=== PATIENT | female | born 1940 | race Two or more races ===

== ENCOUNTER 2018-08-11 09:44 | Outpatient (CLI) | payer OTHER ==
[2018-08-11 18:00] LABS: ALBUMIN 4.1 g/dL (3.2-5.5); ALBUMIN/GLOBULIN RATIO 1.3 (1.0-2.2); ALKALINE PHOSPHATASE 80 IU/L (42-121); ALT ALANINE AMINOTRANSFERASE 64 IU/L (10-60); AST ASPARTATE AMINOTRANSFERASE 39 IU/L (10-42); BILIRUBIN,TOTAL 0.9 mg/dL (0.2-1.0); BUN - BLOOD UREA NITROGEN 54 mg/dL (6-20); CALCIUM 9.6 mg/dL (8.5-10.3); CARBON DIOXIDE - CO2 23 mmol/L (21-32); CHLORIDE 105 mmol/L (101-111); CHOL/HDL RATIO 2.1 (<4.4); CHOLESTEROL 137 mg/dL; CREATININE 2.4 mg/dL (0.4-1.0); GFR - MDRD 20 (>89); GLUCOSE 100 mg/dL (70-100); HDL CHOLESTEROL 65 mg/dL; LDL CHOLESTEROL,CALCULATED 59 mg/dL; LDL/HDL RATIO 0.9 (<4.4); SODIUM 139 mmol/L (135-145); TOTAL PROTEIN 7.3 g/dL (6.7-8.2); VLDL CHOLESTEROL 13 mg/dL
[2018-08-11 18:35] LABS: HB2 TOTAL 11.9 g/dL; HEMOGLOBIN A1C 0.78 g/dL; HEMOGLOBIN A1C % 8.1 % (4.6-6.2)
== END 2018-08-11 09:45 | disposition home or self-care (01) ==
LOC: LAB.F 09:44
PROVIDERS: ATTEND Internal Medicine
DX: E78.5 Hyperlipidemia, unspecified (principal); E11.9 Type 2 diabetes mellitus without complications
CPT/HCPCS: 36415; 80053; 80061; 82043; 83036; 83721; 84443

== ENCOUNTER 2019-02-22 08:47 | Outpatient (CLI) | payer OTHER ==
[2019-02-22 17:40] LABS: HB2 TOTAL 10.9 g/dL; HEMOGLOBIN A1C 0.57 g/dL; HEMOGLOBIN A1C % 6.9 % (4.6-6.2)
[2019-02-22 17:41] LABS: ALBUMIN 4.1 g/dL (3.2-5.5); ALBUMIN/GLOBULIN RATIO 1.3 (1.0-2.2); ALKALINE PHOSPHATASE 83 IU/L (42-121); ALT ALANINE AMINOTRANSFERASE 24 IU/L (10-60); AST ASPARTATE AMINOTRANSFERASE 23 IU/L (10-42); BILIRUBIN,TOTAL 0.7 mg/dL (0.2-1.0); BUN - BLOOD UREA NITROGEN 53 mg/dL (6-20); CALCIUM 9.6 mg/dL (8.5-10.3); CARBON DIOXIDE - CO2 24 mmol/L (21-32); CHLORIDE 107 mmol/L (101-111); CHOL/HDL RATIO 2.4 (<4.4); CHOLESTEROL 166 mg/dL; CREATININE 2.6 mg/dL (0.4-1.0); GFR - MDRD 18 (>89); GLUCOSE 125 mg/dL (70-100); HDL CHOLESTEROL 70 mg/dL; LDL CHOLESTEROL,CALCULATED 80 mg/dL; LDL/HDL RATIO 1.1 (<4.4); SODIUM 139 mmol/L (135-145); TOTAL PROTEIN 7.3 g/dL (6.7-8.2); VLDL CHOLESTEROL 16 mg/dL
== END 2019-02-22 08:48 | disposition home or self-care (01) ==
LOC: LAB.S 08:47
PROVIDERS: ATTEND Internal Medicine
DX: E78.5 Hyperlipidemia, unspecified (principal); E11.9 Type 2 diabetes mellitus without complications; E03.9 Hypothyroidism, unspecified
CPT/HCPCS: 36415; 80053; 80061; 83036; 83721; 84443

== ENCOUNTER 2021-03-24 14:00 | Outpatient (CLI) | payer MEDICARE ==
[2021-03-24 20:14] LABS: BILIRUBIN,URINE NEGATIVE (NEGATIVE); GLUCOSE, URINE (UA) NEGATIVE (NEGATIVE); KETONES,URINE (UA) NEGATIVE (NEGATIVE); LEUKOCYTE ESTERASE, URINE TRACE (NEGATIVE); NITRITE,URINE NEGATIVE (NEGATIVE); OCCULT BLOOD,URINE TRACE-INTA (NEGATIVE); PH,URINE 5.5 PH (5.0-7.5); PROTEIN,URINE 30 mg/dL (NEGATIVE); UROBILINOGEN,URINE 0.2 (NORMAL) E.U./dL (NORMAL)
[2021-03-24 20:17] LABS: CLARITY,URINE CLEAR (CLEAR)
[2021-03-24 20:41] LABS: RBC,URINE 0-5 /HPF (0-5); WBC CLUMPS,URINE PRESENT; WBC,URINE >25 /HPF (0-5)
[2021-03-24 20:42] LABS: BACTERIA,URINE Moderate /HPF (None Seen); SQUAMOUS EPITHELIAL CELL,UR NONE SEEN (<= Few)
== END 2021-03-24 14:01 | disposition home or self-care (01) ==
LOC: LAB.S 14:00
DX: N39.0 Urinary tract infection, site not specified (principal)
CPT/HCPCS: 81001; 81003; 87077; 87086; 87181

== ENCOUNTER 2021-06-11 12:52 | Emergency (ER) | payer MEDICARE ==
[2021-06-11 13:04] VITALS: BP 111/83
--- NOTE | 2021-06-11 13:10 | ED Physician Documentation ---
PD HPI HEENT - Stated complaint Stated Complaint: FB IN LT EAR - Chief complaint Chief Complaint: Heent - History obtained from History obtained from: Patient - History of Present Illness Location: Left ear (The rubber tip of her hearing aid has been stuck in the left ear for the last 2 nights.) Review of Systems Constitutional: reports: Reviewed and negative Ears: reports: Loss of hearing, Ear pain, Foreign body. denies: Drainage/discharge Nose: reports: Reviewed and negative PD PAST MEDICAL HISTORY - Present Medications Home Medications: Ambulatory Orders Medication Instructions Recorded Confirmed Atorvastatin [Lipitor] 06/11/21 Furosemide [Lasix] 06/11/21 Insulin Glargine [Lantus Solostar] 06/11/21 Insulin Lispro [Humalog] 06/11/21 Levothyroxine Sodium 50 mcg PO 06/11/21 06/11/21 [Levothyroxine] - Allergies Allergies/Adverse Reactions: Allergies Allergy/AdvReac Type Severity Reaction Status Date / Time No Known Drug Allergies Allergy Verified 06/11/21 13:04 PD ED PE NORMAL - Vitals Vital signs reviewed: Yes - General General: Alert and oriented X 3, No acute distress - HEENT HEENT: Other (There is a foreign body deep in the ear canal) - Neuro Neuro: Alert and oriented X 3, Normal speech Results - Vitals Vitals: Vital Signs - 24 hr 06/11/21 13:00 Temperature 36.3 C L Heart Rate 78 Respiratory 16 Rate Blood Pressure 111/83 H O2 Saturation 100 Oxygen O2 Source Room air Procedures - FB removal FB location: Ear (The rubber piece of her hearing aid was removed from the left ear canal with alligator forceps without difficulty. She tolerated it well and subsequent otoscopy was normal.) Departure - Departure Disposition: 01 Home, Self Care Clinical Impression: Foreign body in ear Condition: Good Record reviewed to determine appropriate education?: Yes Instructions: ED Foreign Body Ear Canal
== END 2021-06-11 13:15 | disposition home or self-care (01) ==
LOC: ED 12:52
DX: T16.2XXA Foreign body in left ear, initial encounter (principal); X58.XXXA Exposure to other specified factors, initial encounter
CPT/HCPCS: 69200; 99281

== ENCOUNTER 2021-08-12 13:36 | Outpatient (CLI) | payer MEDICARE ==
[2021-08-15 11:31] LABS: COMPLEMENT COMPONENT C3C 116 mg/dL (83-193); COMPLEMENT COMPONENT C4C 33 mg/dL (15-57)
[2021-08-19 15:06] LABS: ANA PATTERN Nuclear, Homogeneous; ANA SCREEN POSITIVE (NEGATIVE)
== END 2021-08-12 13:37 | disposition home or self-care (01) ==
LOC: LAB.S 13:36
PROVIDERS: ATTEND Internal Medicine Nephrology
DX: N18.4 Chronic kidney disease, stage 4 (severe) (principal)
CPT/HCPCS: 36415; 81599; 82570; 84155; 84156; 84165; 84166; 86038; 86160; 86334

== ENCOUNTER 2022-04-26 17:07 | Emergency (ER) | payer MEDICARE ==
--- NOTE | 2022-04-26 18:52 | XRAY Report ---
PROCEDURE: Chest 1 View X-Ray INDICATIONS: Chest pain TECHNIQUE: One view of the chest was acquired. COMPARISON: None. FINDINGS: Surgical changes and devices: None. Lungs and pleura: No pleural effusions or pneumothorax. Lungs are clear. Mediastinum: Mediastinal contours appear normal. Heart size is normal. Bones and chest wall: No suspicious bony lesions. Overlying soft tissues appear unremarkable. IMPRESSION: No acute cardiopulmonary abnormality. Reviewed by: Ankur Queen MD on 04/26/2022 6:[address] [facility] Approved by: Ankur Queen MD on 04/26/2022 6:[address] [facility] Station ID: [id number]
[2022-04-26 18:54] LABS: BASOPHILS # (AUTO) 0.1 10^3/uL (0.0-0.1); BASOPHILS % (AUTO) 0.9 %; EOSINOPHILS # (AUTO) 0.2 10^3/uL (0.0-0.7); EOSINOPHILS % (AUTO) 2.9 %; HCT - HEMATOCRIT 36.4 % (37.0-47.0); HGB - HEMOGLOBIN 11.2 g/dL (12.0-16.0); LYMPHOCYTES # (AUTO) 1.8 10^3/uL (1.5-3.5); LYMPHOCYTES % (AUTO) 25.8 %; MEAN CORPUSCULAR HEMOGLOBIN 28.8 pg (27.0-31.0); MEAN CORPUSCULAR HGB CONC 30.8 g/dL (32.0-36.0); MEAN CORPUSCULAR VOLUME 93.6 fL (81.0-99.0); MEAN PLATELET VOLUME 9.9 fL (7.9-10.8); MONOCYTES # (AUTO) 0.6 10^3/uL (0.0-1.0); MONOCYTES % (AUTO) 8.4 %; NEUTROPHILS # (AUTO) 4.2 10^3/uL (1.5-6.6); NEUTROPHILS % (AUTO) 61.7 %; PLT - PLATELET COUNT 229 10^3/uL (130-450); RED BLOOD COUNT 3.89 10^6/uL (4.20-5.40); RED CELL DISTRIBUTION WIDTH 13.2 % (12.0-15.0); WHITE BLOOD COUNT 6.8 x10^3/uL (4.8-10.8)
[2022-04-26 19:11] LABS: ALBUMIN 3.5 g/dL (3.2-5.5); BILIRUBIN,TOTAL 0.2 mg/dL (0.2-1.0); CREATININE 3.1 mg/dL (0.4-1.0); POTASSIUM 4.3 mmol/L (3.5-5.0); TOTAL PROTEIN 6.9 g/dL (6.7-8.2)
[2022-04-26] MEDS ORDERED: SODIUM CHLORIDE 0.9% 1,000 ML IV STA (21:36)
--- NOTE | 2022-04-26 21:38 | ED Physician Documentation ---
History of Present Illness - Stated complaint Stated Complaint: HIGH BP/HEART RATE - Chief complaint Chief Complaint: Cardiac - History obtained from History obtained from: Patient, Family - History of Present Illness Timing: Today - Additonal information Additional information: 81-year-old but has a history of renal insufficiency and hypertension and she is recently increased her dose of lisinopril. Today she became concerned when she developed an increase in her blood pressure despite taking increase lisinopril and developing some chest pressure and she was asked by her oracle business analyst to come to the emergency department for evaluation. She states that she is otherwise not been ill recently. Review of Systems Constitutional: denies: Fever Eyes: denies: Decreased vision Ears: denies: Ear pain Nose: denies: Congestion Throat: denies: Sore throat Cardiac: reports: Chest pain / pressure. 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 HEENT: Chronic hearing loss Derm: None - Past Surgical History Past Surgical History: Yes - Present Medications Home Medications: Ambulatory Orders Medication Instructions Recorded Confirmed Atorvastatin [Lipitor] 06/11/21 Furosemide [Lasix] 06/11/21 Insulin Glargine [Lantus Solostar] 06/11/21 Insulin Lispro [Humalog] 06/11/21 Levothyroxine Sodium 50 mcg PO 06/11/21 06/11/21 [Levothyroxine] - Allergies Allergies/Adverse Reactions: Allergies Allergy/AdvReac Type Severity Reaction Status Date / Time No Known Drug Allergies Allergy Verified 04/26/22 18:19 - Social History Does the pt smoke?: No Smoking Status: Never smoker Does the pt drink ETOH?: No Does the pt have substance abuse?: No - Immunizations Immunizations are current?: Yes PD ED PE NORMAL - Vitals Vital signs reviewed: Yes (hypertensive ) - General General: Alert and oriented X 3, No acute distress, Well developed/nourished - HEENT HEENT: Atraumatic, PERRL, EOMI - Neck Neck: Supple, no meningeal sign, No bony TTP - Cardiac Cardiac: RRR, No murmur - Respiratory Respiratory: No respiratory distress, Clear bilaterally - Abdomen Abdomen: Soft, Non tender - Back Back: No CVA TTP, No spinal TTP - Derm Derm: Normal color, Warm and dry, No rash - Extremities Extremities: No deformity, No edema - Neuro Neuro: Alert and oriented X 3, recreation clerk 2-12 intact, No motor deficit, No sensory deficit, Normal speech Eye Opening: Spontaneous Motor: Obeys Commands Verbal: Oriented GCS Score: 15 - Psych Psych: Normal mood, Normal affect Results - Vitals Vitals: Vital Signs - 24 hr 04/26/22 04/26/22 04/26/22 18:12 20:55 21:51 Temperature 36.2 C L Heart Rate 94 90 83 Respiratory 20 16 21 Rate Blood Pressure 193/70 H 204/95 H 201/76 H O2 Saturation 99 100 100 04/26/22 04/26/22 04/26/22 22:34 23:04 23:20 Temperature 36.3 C L Heart Rate 81 Respiratory 20 Rate Blood Pressure 190/74 H 194/83 H 192/78 H O2 Saturation 100 Oxygen O2 Source Room air - Labs Labs: Laboratory Tests 04/26/22 04/26/22 04/26/22 18:48 18:48 18:48 WBC 6.8 RBC 3.89 L Hgb 11.2 L Hct 36.4 L MCV 93.6 MCH 28.8 MCHC 30.8 L RDW 13.2 Plt Count 229 MPV 9.9 Neut # (Auto) 4.2 Lymph # (Auto) 1.8 Carbon # (Auto) 0.6 Eos # (Auto) 0.2 Baso # (Auto) 0.1 Absolute Nucleated RBC 0.00 Nucleated RBC % 0.0 Sodium 141 Potassium 4.3 Chloride 111 Carbon Dioxide 23 Anion Gap 7.0 BUN 41 H Creatinine 3.1 H Estimated GFR (MDRD) 14 L Glucose 93 Calcium 9.0 Total Bilirubin 0.2 AST 23 ALT 21 Alkaline Phosphatase 99 Troponin I High Sens 10.2 Total Protein 6.9 Albumin 3.5 Globulin 3.4 Albumin/Globulin Ratio 1.0 Lipase 29 - Rads (name of study) chest Radiology: Prelim report reviewed (Impression: No acute cardiopulmonary abnormality.), EMP read indepedently, See rad report Procedures - IVC sono (time) 2129 Bedside IVC sono: IVC measures (cm) (0.93), IVC collapsed c insp (cm) (complete), Dehydration (est 2 liter deficit) PD MEDICAL DECISION MAKING - ED course Complexity details: considered differential, d/w patient, d/w family ED course: 81-year-old female with a recent spike in her blood pressure and a history of renal insufficiency has developed a low-grade headache and chest pressure. She has had symptoms since early in the day and she is found to be dehydrated on interrogation of the inferior vena cava with POCUS. She is administered a liter of saline intravenously with improvement. Departure - Departure Disposition: 01 Home, Self Care Clinical Impression: Dehydration Condition: Stable Instructions: ED Dehydration Follow-Up: FERMÍN CHEEK MD [Primary Care Provider] - Comments: Rosalie today it looks like you were dehydrated when we checked your inferior venacava at the bedside with ultrasound. We were able to give you a liter of saline and you will need additional fluids at home to catch up. Discharge Date/Time: 04/26/22 23:35
[2022-04-26 23:21] VITALS: BP 192/78
== END 2022-04-26 23:35 | disposition home or self-care (01) ==
LOC: ED 17:07
DX: E86.0 Dehydration (principal); I10 Essential (primary) hypertension; R07.89 Other chest pain; R51.9 Headache, unspecified; I45.2 Bifascicular block; E11.9 Type 2 diabetes mellitus without complications; Z79.4 Long term (current) use of insulin; E03.9 Hypothyroidism, unspecified; Z79.899 Other long term (current) drug therapy
CPT/HCPCS: 36415; 80053; 83690; 84484; 85025; 93005; 96360; 99284

== ENCOUNTER 2023-02-02 14:20 | Outpatient (CLI) | payer MEDICARE ==
[2023-02-02 20:26] LABS: ALBUMIN 3.3 g/dL (3.2-5.5); CREATININE 6.5 mg/dL (0.6-1.3); PHOSPHORUS 6.4 mg/dL (2.5-5.0); POTASSIUM 5.1 mmol/L (3.5-4.5)
== END 2023-02-02 14:21 | disposition home or self-care (01) ==
LOC: LAB.S 14:20
PROVIDERS: ATTEND Internal Medicine Nephrology
DX: N18.5 Chronic kidney disease, stage 5 (principal)
CPT/HCPCS: 36415; 80069

== ENCOUNTER 2023-12-29 16:09 | Outpatient (CLI) | payer MEDICARE | END 2023-12-29 23:59 | disposition critical access hospital (66) | LOC: EMS 16:09 | DX: R06.03 Acute respiratory distress (principal); Z99.2 Dependence on renal dialysis | CPT/HCPCS: A0425; A0427 ==

== ENCOUNTER 2023-12-29 16:24 | Emergency (ER) | payer MEDICARE ==
--- NOTE | 2023-12-29 16:34 | ED Physician Documentation ---
History of Present Illness - Stated complaint Stated Complaint: RESP DISTRESS - History obtained from History obtained from: Patient, EMS - Additonal information Additional information: The patient comes to the emergency department via EMS for chief complaint of dyspnea that began suddenly while she was at the dentist office. Patient states she was feeling normal earlier today, but when she got in the dental chair this afternoon, she suddenly began to feel short of breath. She states she did not feel like she was having a panic attack and did not feel as though she had been ill with anything. She denies any chest pain or nausea. No diaphoresis. She did not feel any feeling of fever or chills. The patient has a history of renal failure on dialysis and her last dialysis treatment was yesterday. She states that seem to go as well as usual and she had no problems afterward. She is due again tomorrow. She has no history of CHF, coronary artery disease, or PE/DVT. She has not had any lower extremity edema or pain. No fevers or cough recently. She denies any history of smoking, COPD, or asthma.She states she is feeling better after being on CPAP and route and receiving an inline DuoNeb. She states this is never happened to her before. No other complaints at this time. Medics state that when they picked the patient up, she was already on 4 L of oxygen per nasal cannula and satting around 92%. Her blood pressure was elevated en route around 214/100. 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 HEENT: Chronic hearing loss Derm: None - Past Surgical History Past Surgical History: Yes - Present Medications Home Medications: Ambulatory Orders Medication Instructions Recorded Confirmed Atorvastatin [Lipitor] 10 mg ORAL HS 06/11/21 07/04/23 Insulin Lispro [Humalog] 5 unit SUBQ TIDWM 06/11/21 Cholecalciferol [Vitamin D3] 50 mcg PO DAILY 07/04/23 07/04/23 Cyanocobalamin (Vitamin B-12) 1,000 mcg PO DAILY 07/04/23 07/04/23 [Vitamin B12] Folic Acid/Vit B Complex and C 0.8 mg PO DAILY 07/04/23 07/04/23 [Nephro-[place] Tablet] Insulin Glargine [Lantus Solostar] 16 unit SUBQ DAILY 07/04/23 07/04/23 Levothyroxine [Synthroid] 75 mcg PO QDAC 07/04/23 07/04/23 Torsemide 60 mg PO DAILY 07/04/23 07/04/23 Ondansetron Odt [Zofran] 4 mg TL Q6H PRN #10 tablet 07/05/23 atenoloL [Tenormin] 50 mg PO Q2D #20 tablet 07/05/23 - Allergies Allergies/Adverse Reactions: Allergies Allergy/AdvReac Type Severity Reaction Status Date / Time No Known Drug Allergies Allergy Verified 07/04/23 18:27 - Social History Does the pt smoke?: No Smoking Status: Never smoker Does the pt drink ETOH?: No Does the pt have substance abuse?: No - Immunizations Immunizations are current?: Yes PD ED PE NORMAL - Vitals Vital signs reviewed: Yes - General General: Alert and oriented X 3, Well developed/nourished, Other (Mildly anxious appearing patient who has mildly labored respirations, on CPAP machine, alert.) - HEENT HEENT: Atraumatic, PERRL, EOMI, Moist mucous membranes - Neck Neck: Supple, no meningeal sign - Cardiac Cardiac: No murmur, Strong equal pulses, Other (Tachycardic rate regular rhythm.) - Respiratory Respiratory: Other (Mild respiratory distress, mild rhonchi bilaterally. Air movement to bases of lungs.) - Abdomen Abdomen: Soft, Non tender, Non distended - Derm Derm: Normal color, Warm and dry, No rash - Extremities Extremities: No deformity, No edema, No calf tenderness / cord - Neuro Neuro: Alert and oriented X 3 - Psych Psych: Normal mood, Normal affect Results - Vitals Vitals: Vital Signs - 24 hr 12/29/23 12/29/23 12/29/23 16:24 16:32 16:37 Temperature 36.7 C Heart Rate 113 H 79 Respiratory 37 H Rate Blood Pressure 194/64 H O2 Saturation 99 12/29/23 12/29/23 12/29/23 16:56 17:07 19:30 Temperature Heart Rate 103 H 79 82 Respiratory 18 23 18 Rate Blood Pressure 207/72 H 185/72 H 145/59 H O2 Saturation 99 99 100 12/29/23 12/29/23 12/29/23 20:00 20:30 21:00 Temperature Heart Rate 88 76 77 Respiratory 20 18 18 Rate Blood Pressure 159/61 H 172/71 H 155/58 H O2 Saturation 96 99 98 12/29/23 12/29/23 21:30 22:00 Temperature Heart Rate 72 73 Respiratory 20 18 Rate Blood Pressure 134/57 H 154/64 H O2 Saturation 99 100 Oxygen O2 Source BIPAP - EKG (time done) 1631 EKG releavant findings:: EKG personally interpreted by author of this note. Relevant findings are: Rate: Rate (enter#) (105) Rhythm: Sinus tachycardia [place]: Normal, Anterior hemiblock Intervals: RBBB QRS: LVH (Probable) Ischemia: Normal ST segments - Labs Labs: Laboratory Tests 12/29/23 12/29/23 12/29/23 16:45 16:45 16:45 WBC 8.5 RBC 3.91 L Hgb 11.8 L Hct 37.4 MCV 95.7 MCH 30.2 MCHC 31.6 L RDW 14.3 Plt Count 243 MPV 9.5 Neut # (Auto) 5.6 Lymph # (Auto) 1.9 [place] # (Auto) 0.7 Eos # (Auto) 0.2 Baso # (Auto) 0.1 Absolute Nucleated RBC 0.00 Nucleated RBC % 0.0 Bld Gas Analysis Time Sample Site ABG pH ABG pCO2 ABG pO2 ABG HCO3 ABG Total CO2 ABG O2 Saturation ABG Base Excess Adelfo Test Respiration Rate O2 Delivery Device FiO2 EPAP IPAP Sodium 135 Potassium 4.4 Chloride 95 L Carbon Dioxide 29 Anion Gap 11.0 BUN 29 H Creatinine 5.4 H Estimated GFR (MDRD) 8 L Glucose 286 H Calcium 10.0 Total Bilirubin 0.6 AST 15 ALT 11 Alkaline Phosphatase 112 Troponin I High Sens 19.6 H* B-Natriuretic Peptide Total Protein 7.1 Albumin 4.0 Globulin 3.1 Albumin/Globulin Ratio 1.3 Lipase 12 Nasal Adenovirus (PCR) Nasal B. parapertussis DNA (PCR) Nasal Coronavir 229E PCR Nasal Coronavir HKU1 PCR Nasal Coronavir NL63 PCR Nasal Coronavir OC43 PCR Nasal Enterovir/Rhinovir PCR Nasal Influenza B PCR Nasal Influenza A PCR Nasal Parainfluen 1 PCR Nasal Parainfluen 2 PCR Nasal Parainfluen 3 PCR Nasal Parainfluen 4 PCR Nasal RSV (PCR) Nasal B.pertussis DNA PCR Nasal C.pneumoniae (PCR) Babak Human Metapneumo PCR Nasal M.pneumoniae (PCR) Nasal SARS-CoV-2 (PCR) 12/29/23 12/29/23 12/29/23 16:45 16:50 20:33 WBC RBC Hgb Hct MCV MCH MCHC RDW Plt Count MPV Neut # (Auto) Lymph # (Auto) [place] # (Auto) Eos # (Auto) Baso # (Auto) Absolute Nucleated RBC Nucleated RBC % Bld Gas Analysis Time 1657 Sample Site RIGHT RADIAL ABG pH 7.41 ABG pCO2 45 ABG pO2 93 ABG HCO3 27.7 H ABG Total CO2 29.1 H ABG O2 Saturation 97 ABG Base Excess 2.6 Adelfo Test POSITIVE Respiration Rate 12 O2 Delivery Device BiPAP FiO2 40.00 EPAP 5 IPAP 10 Sodium Potassium Chloride Carbon Dioxide Anion Gap BUN Creatinine Estimated GFR (MDRD) Glucose Calcium Total Bilirubin AST ALT Alkaline Phosphatase Troponin I High Sens B-Natriuretic Peptide 2507 H Total Protein Albumin Globulin Albumin/Globulin Ratio Lipase Nasal Adenovirus (PCR) NOT DETECTED Nasal B. parapertussis DNA (PCR) NOT DETECTED Nasal Coronavir 229E PCR NOT DETECTED Nasal Coronavir HKU1 PCR NOT DETECTED Nasal Coronavir NL63 PCR NOT DETECTED Nasal Coronavir OC43 PCR NOT DETECTED Nasal Enterovir/Rhinovir PCR NOT DETECTED Nasal Influenza B PCR NOT DETECTED Nasal Influenza A PCR NOT DETECTED Nasal Parainfluen 1 PCR NOT DETECTED Nasal Parainfluen 2 PCR NOT DETECTED Nasal Parainfluen 3 PCR NOT DETECTED Nasal Parainfluen 4 PCR NOT DETECTED Nasal RSV (PCR) NOT DETECTED Nasal B.pertussis DNA PCR NOT DETECTED Nasal C.pneumoniae (PCR) NOT DETECTED Babak Human Metapneumo PCR NOT DETECTED Nasal M.pneumoniae (PCR) NOT DETECTED Nasal SARS-CoV-2 (PCR) NOT DETECTED 12/29/23 20:33 WBC RBC Hgb Hct MCV MCH MCHC RDW Plt Count MPV Neut # (Auto) Lymph # (Auto) [place]ann[place] # (Auto) Eos # (Auto) Baso # (Auto) Absolute Nucleated RBC Nucleated RBC % Bld Gas Analysis Time Sample Site ABG pH ABG pCO2 ABG pO2 ABG HCO3 ABG Total CO2 ABG O2 Saturation ABG Base Excess Adelfo Test Respiration Rate O2 Delivery Device FiO2 EPAP IPAP Sodium Potassium Chloride Carbon Dioxide Anion Gap BUN Creatinine Estimated GFR (MDRD) Glucose Calcium Total Bilirubin AST ALT Alkaline Phosphatase Troponin I High Sens 76.3 H* B-Natriuretic Peptide Total Protein Albumin Globulin Albumin/Globulin Ratio Lipase Nasal Adenovirus (PCR) Nasal B. parapertussis DNA (PCR) Nasal Coronavir 229E PCR Nasal Coronavir HKU1 PCR Nasal Coronavir NL63 PCR Nasal Coronavir OC43 PCR Nasal Enterovir/Rhinovir PCR Nasal Influenza B PCR Nasal Influenza A PCR Nasal Parainfluen 1 PCR Nasal Parainfluen 2 PCR Nasal Parainfluen 3 PCR Nasal Parainfluen 4 PCR Nasal RSV (PCR) Nasal B.pertussis DNA PCR Nasal C.pneumoniae (PCR) Babak Human Metapneumo PCR Nasal M.pneumoniae (PCR) Nasal SARS-CoV-2 (PCR) PD Medical Decision Making - ED course Complexity details: reviewed results, re-evaluated patient, considered dif ferential, d/w patient ED course: Patient was evaluated by myself immediately upon arrival in the emergency department. She was immediately switched over to BiPAP and calmed significantly after I was able to speak with her. I ordered NTG paste for her, as well as Cardizem to bring her BP down. She was also given a small dose of Ativan. She was still having some laboring of respirations and so was kept on the BiPAP. Her oxygen saturation was 99 to 100% so we did back off on the oxygen a little bit. She was worked up with a EKG which showed sinus tachycardia, as well as labs and chest x-ray. Labs showed mildly elevated troponin, not surprisingly, given the pt's renal failure. Her WBC count was normal, and GFR was 8. ABG showed a pH of 7.4, with pO2 of 93 and normal pCO2. CXR showed marked pulmonary edema. The pt was given a very small dose of Lasix, given her renal failure, to encourage some diuresis. She did show marked improvement in HR and BP, and was found to be resting comfortably. The plan is for the pt to be transferred to a facility with cardiology and dialysis capabilities. She is signed out to Dr. Kyle at change of shift, pending transfer arrangements. - Critical Care Time(min): 45 Comments: Critical care time was necessary, due to high probability of imminent and life- threatening decline, secondary to hypertensive emergency, flash pulmonary edema, congestive heart failure, renal failure, and respiratory failure. Time Includes: Direct patient care, Review records, Reassess patient, Document care, Coordinate care, See progress note Data interpretation: Labs, Pulse ox, ABG, CXR, Cardiac output, See progress note Procedures included in critical care time: Ventilator mgmt Departure - Departure Disposition: 02 Transfer Acute Care Hosp Clinical Impression: ESRD (end stage renal disease) on dialysis, Hypertensive emergency Pulmonary edema Qualifiers: Chronicity: acute Qualified Code(s): J81.0 - Acute pulmonary edema Respiratory failure Qualifiers: Chronicity: acute Respiratory failure complication: hypoxia Qualified Code(s): J96.01 - Acute respiratory failure with hypoxia Condition: Critical
[2023-12-29 16:51] LABS: BASOPHILS # (AUTO) 0.1 10^3/uL (0.0-0.1); BASOPHILS % (AUTO) 0.7 %; EOSINOPHILS # (AUTO) 0.2 10^3/uL (0.0-0.7); EOSINOPHILS % (AUTO) 1.9 %; HCT - HEMATOCRIT 37.4 % (37.0-47.0); HGB - HEMOGLOBIN 11.8 g/dL (12.0-16.0); LYMPHOCYTES # (AUTO) 1.9 10^3/uL (1.5-3.5); LYMPHOCYTES % (AUTO) 22.9 %; MEAN CORPUSCULAR HEMOGLOBIN 30.2 pg (27.0-31.0); MEAN CORPUSCULAR HGB CONC 31.6 g/dL (32.0-36.0); MEAN CORPUSCULAR VOLUME 95.7 fL (81.0-99.0); MEAN PLATELET VOLUME 9.5 fL (7.9-10.8); MONOCYTES # (AUTO) 0.7 10^3/uL (0.0-1.0); MONOCYTES % (AUTO) 8.4 %; NEUTROPHILS # (AUTO) 5.6 10^3/uL (1.5-6.6); NEUTROPHILS % (AUTO) 65.7 %; PLT - PLATELET COUNT 243 10^3/uL (130-450); RED BLOOD COUNT 3.91 10^6/uL (4.20-5.40); RED CELL DISTRIBUTION WIDTH 14.3 % (12.0-15.0); WHITE BLOOD COUNT 8.5 x10^3/uL (4.8-10.8)
[2023-12-29] MEDS: LORazepam 2 MG/ML VIAL IVP STA (16:58)
[2023-12-29 17:00] LABS: ABG HCO3 27.7 mmol/L (22.0-26.0); ABG PCO2 45 mmHg (34-45); ABG PH 7.41 (7.35-7.45); ABG PO2 93 mmHg (80-100); ABG TCO2 29.1 MMOL/L (21.0-29.0)
[2023-12-29 17:01] LABS: ABG BASE EXCESS 2.6 mmol/L (-2.0-3.0); ABG OXYGEN SATURATION 97 % (94-98); ABG RESPIRATORY RATE 12 b/min; ALLEN TEST POSITIVE
[2023-12-29] MEDS: diltiaZEM INJ 5 MG/ML VIAL IVP STA (17:01)
[2023-12-29] MEDS: NITROGLYCERIN 2% PASTE TOP STA (17:04)
[2023-12-29] MEDS: FUROSEMIDE 20 MG/2 ML VIAL IVP STA (17:16)
--- NOTE | 2023-12-29 17:16 | XRAY Report ---
PROCEDURE: Chest 1V INDICATIONS: dyspnea TECHNIQUE: One view of the chest was acquired. COMPARISON: 04/26/2022. FINDINGS: Surgical changes and devices: 04/26/2022. Lungs and pleura: Diffuse prominent interstitial markings and small bilateral pleural effusions. Mediastinum: Mediastinal contours appear normal. Heart size is normal. Bones and chest wall: No suspicious bony lesions. Overlying soft tissues appear unremarkable. IMPRESSION: Diffuse prominent interstitial markings and small bilateral pleural effusions. Findings may represent pulmonary edema, infection is also the differential and clinical correlation is recommended. Reviewed by: Abdi Hutchinson MD on 12/29/2023 5:15 PM PDT Approved by: Abdi Hutchinson MD on 12/29/2023 5:15 PM PDT Station ID: [id number]
[2023-12-29 17:28] LABS: ALBUMIN/GLOBULIN RATIO 1.3 (1.0-2.2); BILIRUBIN,TOTAL 0.6 mg/dL (0.2-1.0); CREATININE 5.4 mg/dL (0.6-1.3); POTASSIUM 4.4 mmol/L (3.5-4.5); TOTAL PROTEIN 7.1 g/dL (6.4-8.9)
[2023-12-29 17:54] LABS: B. PARAPERTUSSIS- RESP PCR PAN NOT DETECTED; B. PERTUSSIS- RESP PCR PANEL NOT DETECTED; C. PNEUMONIAE- RESP PCR PANEL NOT DETECTED; CORONAVIRUS 229E-RESP PCR NOT DETECTED; CORONAVIRUS HKU1-RESP PCR NOT DETECTED; CORONAVIRUS NL63-RESP PCR NOT DETECTED; CORONAVIRUS OC43-RESP PCR NOT DETECTED; HUMAN METAPNEUMOVIRUS NOT DETECTED; INFLUENZA A- RESP PCR PANEL NOT DETECTED; INFLUENZA B - RESP PCR PANEL NOT DETECTED; M. PNEUMONIAE- RESP PCR PANEL NOT DETECTED; PARAINFLUENZA VIRUS 1 NOT DETECTED; PARAINFLUENZA VIRUS 2 NOT DETECTED; PARAINFLUENZA VIRUS 3 NOT DETECTED; PARAINFLUENZA VIRUS 4 NOT DETECTED; RHINOVIRUS/ENTEROVIRUS NOT DETECTED; RSV- RESP PCR PANEL NOT DETECTED; SARS-CoV-2 -RESP PCR PANEL NOT DETECTED
--- NOTE | 2023-12-29 20:32 | ED Physician Documentation ---
ED Addendum - Addendum Addendum: 12/29/23 20:33 Patient endorsed to me by Dr. Rondon awaiting transfer for hospital with nephrology capabilities. I did discuss with [facility] regarding the patient's care and she was approved for transfer. Dough Raiser is Dr. Kirk with [facility]. She had dialysis on 12/28/23 and normally gets it M, W, F. Patient has previous medical records at [facility]. Plan to endorsed to incoming daytime EDMD at 7 AM shift change if I am unable to find a transfer accepting hospital overnight. 12/29/23 23:45 d/w [facility] who are working on finding a bed for transfer. all [facility] line hospitals are boarding at present. patient clinically stable. boarding overnight. 12/30/23 04:03 d/w Dr. Laguna, hospitalist at [facility] who accepts in transfer. they will call back with a bed. 12/30/23 04:09 Disposition transfer Condition stable Impression 1. acute pulmonary edema 2. shortness of breath 3. chf exacerbation 4. hypertension 12/30/23 07:43
[2023-12-29] MEDS: ASPIRIN 325 MG TABLET PO STA (21:08)
[2023-12-30 05:09] LABS: BASOPHILS # (AUTO) 0.1 10^3/uL (0.0-0.1); BASOPHILS % (AUTO) 0.6 %; EOSINOPHILS # (AUTO) 0.2 10^3/uL (0.0-0.7); EOSINOPHILS % (AUTO) 1.9 %; HCT - HEMATOCRIT 32.2 % (37.0-47.0); HGB - HEMOGLOBIN 9.9 g/dL (12.0-16.0); LYMPHOCYTES # (AUTO) 1.3 10^3/uL (1.5-3.5); MEAN CORPUSCULAR HEMOGLOBIN 29.7 pg (27.0-31.0); MEAN CORPUSCULAR HGB CONC 30.7 g/dL (32.0-36.0); MEAN CORPUSCULAR VOLUME 96.7 fL (81.0-99.0); MEAN PLATELET VOLUME 9.2 fL (7.9-10.8); MONOCYTES # (AUTO) 0.8 10^3/uL (0.0-1.0); MONOCYTES % (AUTO) 9.1 %; NEUTROPHILS # (AUTO) 6.1 10^3/uL (1.5-6.6); NEUTROPHILS % (AUTO) 73.2 %; PLT - PLATELET COUNT 191 10^3/uL (130-450); RED BLOOD COUNT 3.33 10^6/uL (4.20-5.40); RED CELL DISTRIBUTION WIDTH 14.2 % (12.0-15.0); WHITE BLOOD COUNT 8.4 x10^3/uL (4.8-10.8)
[2023-12-30 05:27] LABS: CALCIUM 9.7 mg/dL (8.5-10.3); CREATININE 6.3 mg/dL (0.6-1.3); POTASSIUM 4.7 mmol/L (3.5-4.5)
[2023-12-30 06:04] VITALS: BP 177/66; O2SAT 99
== END 2023-12-30 06:38 | disposition short-term general hospital (02) ==
LOC: EDUNIT# → ED 16:24
DX: J81.0 Acute pulmonary edema (principal); J96.01 Acute respiratory failure with hypoxia; E11.22 Type 2 diabetes mellitus with diabetic chronic kidney disease; I12.0 Hypertensive chronic kidney disease with stage 5 chronic kidney disease or end stage renal disease; N18.6 End stage renal disease; Z99.2 Dependence on renal dialysis; E03.9 Hypothyroidism, unspecified; E78.00 Pure hypercholesterolemia, unspecified; N28.9 Disorder of kidney and ureter, unspecified; Z79.4 Long term (current) use of insulin; Z79.899 Other long term (current) drug therapy
CPT/HCPCS: 36415; 36600; 71045; 80048; 80053; 82803; 83690; 83880; 84484; 85025; 87633; 93005; 94660; 96374; 96375; 99291; A9270; J2060